=== PATIENT | female | born 1975 | race Caucasian/White ===

== ENCOUNTER 2024-08-06 01:40 | Emergency (ER) | payer OTHER ==
[2024-08-06 01:58] VITALS: BP 147/98; PULSE 78; RESP 18; TEMP 98.1; BMI 22.4
[2024-08-06] MEDS ORDERED: KETOROLAC TROMETHAMINE 30 MG/1 ML VIAL ONE (02:26)
[2024-08-06] MEDS: KETOROLAC TROMETHAMINE 30 MG/1 ML VIAL IVPUSH ONE (02:38)
[2024-08-06] MEDS: SODIUM CHLORIDE 1,000 ML IV STA (02:38)
== END 2024-08-06 04:26 | disposition home or self-care (01) ==
LOC: JER 01:40
PROC: 3E0333Z Introduction of Anti-inflammatory into Peripheral Vein, Percutaneous Approach (ICD-10-PCS; principal; 2024-08-06)
PROC: 3E0337Z Introduction of Electrolytic and Water Balance Substance into Peripheral Vein, Percutaneous Approach (ICD-10-PCS; 2024-08-06)
DX: M79.652 Pain in left thigh (principal); R60.0 Localized edema; T50.995A Adverse effect of other drugs, medicaments and biological substances, initial encounter; R06.02 Shortness of breath
CPT/HCPCS: 99284-25